=== PATIENT | male | born 1960 | race Caucasian/White ===

== ENCOUNTER 2017-11-28 22:50 | Emergency (ER) | payer MEDICARE, MEDICAID ==
[~2017-11-28] VITALS: Ht 188 cm; Wt 72.7 kg
[~2017-11-28 22:50] MED LIST: LISI-660 PO; METF500T4 PO; PARO20TA24 PO; QUET200T PO
[2017-11-28] MEDS ORDERED: IBUP-2070 PO (23:04)
[2017-11-28] MEDS ORDERED: TRAM50TA4 PO (23:04)
[2017-11-29 00:33] LABS: GLUCOSE,POINT OF CARE 101 MG/DL (70-110)
[2017-11-29] MEDS ORDERED: SULFAMETHOX/TRIMETH DS 800-160 MG/TABLET PO ONE (01:15)
[2017-11-29] MEDS ORDERED: CEPHALEXIN MONOHYDRATE 500 MG CAPSULE PO ONE (01:15)
[2017-11-29 01:16] VITALS: BP 124/75
== END 2017-11-29 01:17 | disposition home or self-care (01) ==
LOC: EMS 22:52
DX: J34.0 Abscess, furuncle and carbuncle of nose (principal); F17.210 Nicotine dependence, cigarettes, uncomplicated; E11.9 Type 2 diabetes mellitus without complications; I10 Essential (primary) hypertension
CPT/HCPCS: 82962; 99283; 99406